=== PATIENT | male | born 1965 | race African-American/Black ===

== ENCOUNTER 2019-07-20 14:46 | Emergency (ER) | payer MEDICAID, OTHER ==
[~2019-07-20] VITALS: Ht 170.2 cm; Wt 94.3 kg
[2019-07-20 15:23] VITALS: BP 146/81
[2019-07-20] MEDS ORDERED: IBUPROFEN 800 MG TAB PO ONE (15:30)
== END 2019-07-20 15:55 | disposition home or self-care (01) ==
LOC: ER 14:46
DX: S39.012A Strain of muscle, fascia and tendon of lower back, initial encounter (principal); M51.37 Other intervertebral disc degeneration, lumbosacral region; W18.2XXA Fall in (into) shower or empty bathtub, initial encounter; Y93.89 Activity, other specified; Y92.89 Other specified places as the place of occurrence of the external cause; Y99.8 Other external cause status
CPT/HCPCS: 72100

== ENCOUNTER 2021-10-26 10:44 | Emergency (ER) | payer MEDICAID ==
[~2021-10-26] VITALS: Ht 170.2 cm; Wt 76.8 kg
[2021-10-26 13:52] VITALS: BP 134/90
== END 2021-10-26 15:05 | disposition home or self-care (01) ==
LOC: ER 10:44
DX: S62.502A Fracture of unspecified phalanx of left thumb, initial encounter for closed fracture (principal); X58.XXXA Exposure to other specified factors, initial encounter; Y93.89 Activity, other specified; Y92.89 Other specified places as the place of occurrence of the external cause; Y99.8 Other external cause status
CPT/HCPCS: 29125; 73130